=== PATIENT | male | born 1980 | race Caucasian/White ===

== ENCOUNTER 2017-05-13 19:26 | Emergency (ER) | payer BC ==
[2017-05-13 19:49] VITALS: BP 130/86
--- NOTE | 2017-05-13 20:09 | UC ---
Skin Complaint HPI - HPI Summary HPI Summary: patient started having red bites on his leg, a few weeks later developed red bites on the right side of his chest. they are pruitic, no pattern, patient does have a cat, not sure what is biting him. - History of Current Complaint Chief Complaint: UCSkin Time Seen by Provider: 05/13/17 19:47 Stated Complaint: SKIN COMPLAINT Hx Obtained From: Patient Onset/Duration: Sudden Onset, Lasting Weeks Skin Exposure Onset/Duration: Weeks Ago Timing: Intermittent Episodes Lasting: - Allergy/Home Medications Allergies/Adverse Reactions: Allergies Allergy/AdvReac Type Severity Reaction Status Date / Time Penicillins Allergy Severe Hives Verified 05/13/17 19:49 Home Medications: Home Medications Fluticasone NASAL * [Flonase *] 2 spray BOTH NARES DAILY 05/13/17 [History Confirmed 05/13/17] Zolpidem TAB* [Ambien TAB*] 10 mg PO BEDTIME PRN 05/13/17 [History Confirmed 04/22] Review of Systems Constitutional: Negative Skin: Rash - bites Eyes: Negative ENT: Negative Respiratory: Negative Cardiovascular: Negative Gastrointestinal: Negative Genitourinary: Negative Motor: Negative Neurovascular: Negative Musculoskeletal: Negative Neurological: Negative Psychological: Negative All Other Systems Reviewed And Are Negative: Yes PMH/Surg Hx/FS Hx/Imm Hx Previously Healthy: Yes - Surgical History Surgical History: None - Family History Known Family History: Negative: Cardiac Disease, Hypertension, Diabetes - Social History Alcohol Use: Daily Substance Use Type: None Smoking Status (MU): Never Smoked Tobacco Type: Cigarettes Amount Used/How Often: ~1/3 PPD Length of Time of Smoking/Using Tobacco: 11 Years Have You Smoked in the Last Year: No When Did the Patient Quit Smoking/Using Tobacco: ~2013 - Immunization History Most Recent Influenza Vaccination: Not the 2015/2016 Season Physical Exam Triage Information Reviewed: Yes Vital Signs: Initial Vital Signs Pulse 97 05/13/17 19:43 Resp 16 05/13/17 19:43 BP 130/86 05/13/17 19:43 Pulse Ox 97 05/13/17 19:43 Vital Signs Reviewed: Yes Eye Exam: Normal Eyes: Positive: Conjunctiva Clear ENT: Positive: Hearing grossly normal, Pharynx normal, TMs normal Dental Exam: Normal Neck exam: Normal Neck: Positive: Supple, Nontender, No Lymphadenopathy Respiratory Exam: Normal Respiratory: Positive: Chest non-tender, Lungs clear, Normal breath sounds Cardiovascular Exam: Normal Abdominal Exam: Normal Abdomen Description: Positive: Nontender, No Organomegaly, Soft Bowel Sounds: Positive: Present Musculoskeletal Exam: Normal Musculoskeletal: Positive: Strength Intact, ROM Intact, No Edema Neurological Exam: Normal Neurological: Positive: Alert, Muscle Tone Normal Psychological Exam: Normal Skin: Positive: Other - multiple bites on rigth side of chest older bites on both legs Course/Dx - Course Course Of Treatment: hx obtained, exam performed ,meds reviewed, prednisone given - Differential Diagnoses - Skin Complaint Differential Diagnoses: Abscess, Cellulitis, Contact Dermatitis, Urticaria - Diagnoses Provider Diagnoses: bug bites Discharge - Discharge Plan Condition: Stable Disposition: HOME Patient Education Materials: Insect Bite or Sting (ED), Bed Bugs (ED) Additional Instructions: 1. you have multiple bug bites. 2. Take the medication as prescribed. 3. Take precautions to avoid possible infestation or future bites. I dont believe they are bed bugs but have included information about what to look for
== END 2017-05-13 20:14 | disposition home or self-care (01) ==
LOC: UCCORT 19:26
DX: S20.361A Insect bite (nonvenomous) of right front wall of thorax, initial encounter (principal); S80.862A Insect bite (nonvenomous), left lower leg, initial encounter; S80.861A Insect bite (nonvenomous), right lower leg, initial encounter; W57.XXXA Bitten or stung by nonvenomous insect and other nonvenomous arthropods, initial encounter; Y93.9 Activity, unspecified; Y92.9 Unspecified place or not applicable; Z88.0 Allergy status to penicillin
CPT/HCPCS: 99212; G0463

== ENCOUNTER 2018-02-27 07:33 | Emergency (ER) | payer BC ==
[2018-02-27 08:19] VITALS: BP 128/82
--- NOTE | 2018-02-27 09:34 | RAD ---
Indication: LEFT knee patella pain following injury. Hit knee on a piece of what yesterday. Comparison: No relevant prior exams available on the [facility] – [place], [place] PACS for comparison. Technique: LEFT knee: AP, tunnel, lateral, sunrise views. REPORT AND IMPRESSION: Mild anterior soft tissue swelling superficial to the patella and quadriceps tendon. No conspicuous foreign body evident. Negative for joint effusion, fracture, or malalignment. Preserved joint spaces.
--- NOTE | 2018-02-27 09:45 | UC ---
Knee Pain HPI - HPI Summary HPI Summary: 37 yo male with left knee pain injured yesterday was horse back riding and his knee hit a piece of plywood able to bear wt sharp shooting pain with with stairs/wt bearing - History of Current Complaint Chief Complaint: UCLowerExtremity Stated Complaint: LEFT KNEE COMPLAINT Time Seen by Provider: 02/27/18 09:00 Hx Obtained From: Patient Onset/Duration: Sudden Onset Severity Initially: Mild Severity Currently: Moderate Pain Intensity: 2 Pain Scale Used: 0-10 Numeric Character: Sharp, Dull, Aching Aggravating Factor(s): Weight Bearing, Stairs Alleviating Factor(s): Rest Associated Signs And Symptoms: Positive: Swelling Able to Bear Weight: Yes - Allergies/Home Medications Allergies/Adverse Reactions: Allergies Allergy/AdvReac Type Severity Reaction Status Date / Time MS Penicillins [Penicillins] Allergy Severe Hives Verified 02/27/18 08:13 Penicillins Allergy Hives Verified 02/27/18 08:13 PMH/Surg Hx/FS Hx/Imm Hx Previously Healthy: Yes - Surgical History Surgical History: None - Family History Known Family History: Negative: Cardiac Disease, Hypertension, Diabetes - Social History Alcohol Use: Daily Alcohol Amount: 2-3 beers daily Substance Use Type: None Smoking Status (MU): Former Smoker Type: Cigarettes Amount Used/How Often: ~1/3 PPD Length of Time of Smoking/Using Tobacco: 11 Years Have You Smoked in the Last Year: No When Did the Patient Quit Smoking/Using Tobacco: ~2013 - Immunization History Most Recent Influenza Vaccination: Not the 2015/2016 Season Review of Systems Constitutional: Negative Skin: Negative Eyes: Negative ENT: Negative Respiratory: Negative Cardiovascular: Negative Gastrointestinal: Negative Genitourinary: Negative Motor: Negative Neurovascular: Negative Musculoskeletal: Arthralgia Neurological: Negative Psychological: Negative Is Patient Immunocompromised?: No All Other Systems Reviewed And Are Negative: Yes Physical Exam Triage Information Reviewed: Yes Appearance: Well-Appearing, No Pain Distress, Well-Nourished Vital Signs: Initial Vital Signs Temp 98.5 F 02/27/18 08:14 Pulse 71 02/27/18 08:14 Resp 16 02/27/18 08:14 BP 128/82 02/27/18 08:14 Pulse Ox 99 02/27/18 08:14 Vital Signs Reviewed: Yes Eyes: Positive: Conjunctiva Clear ENT: Positive: Hearing grossly normal. Negative: Nasal congestion, Nasal drainage, Uvula midline Neck: Positive: Supple, Nontender Respiratory: Positive: Lungs clear, Normal breath sounds, No respiratory distress, No accessory muscle use Cardiovascular: Positive: RRR, No Murmur Musculoskeletal: Positive: ROM Intact, No Edema Neurological: Positive: Alert Psychological Exam: Normal Skin Exam: Normal Diagnostics - Radiology No standard instances Xray Interpretation: No Acute Changes - except soft tissue swelling Radiology Interpretation Completed By: Radiologist Knee Pain Course/Dx - Differential Dx/Diagnosis Provider Diagnoses: left knee contusion Discharge - Sign-Out/Discharge Documenting (check all that apply): Discharge/Admit/Transfer - Discharge Plan Condition: Stable Disposition: HOME Patient Education Materials: Contusion in Adults (ED), Knee Pain (ED) Referrals: Williams Meier MD [Medical Doctor] - If Needed Additional Instructions: activity as tolerated ice advil or aleve - Billing Disposition and Condition Condition: STABLE Disposition: HOME
== END 2018-02-27 09:53 | disposition home or self-care (01) ==
LOC: UCCORT 07:33
DX: S80.02XA Contusion of left knee, initial encounter (principal); W22.8XXA Striking against or struck by other objects, initial encounter; Z88.0 Allergy status to penicillin; Z87.891 Personal history of nicotine dependence; Y92.9 Unspecified place or not applicable; Y93.52 Activity, horseback riding
CPT/HCPCS: 99211; G0463

== ENCOUNTER 2018-04-18 18:59 | Emergency (ER) | payer BC ==
[2018-04-18 19:37] VITALS: BP 120/89
[2018-04-18] MEDS ORDERED: Albuterol 2.5 MG/3 ML NEB.SOL* (0.083%) INH ONE (19:46)
--- NOTE | 2018-04-18 20:22 | RAD ---
INDICATION: Cough status post radiation to the breast. COMPARISON: There are no prior studies available for comparison. TECHNIQUE: Dual-energy PA and lateral views of the chest were obtained. FINDINGS: The heart is within normal limits in size. Mediastinal and hilar contours appear within normal limits. The lungs are clear. No pleural effusion is present. IMPRESSION: NO EVIDENCE FOR ACTIVE CARDIOPULMONARY DISEASE.
--- NOTE | 2018-04-18 20:44 | UC ---
Laceration HPI - HPI Summary HPI Summary: laceration right hand, cough for the last two weeks - History Of Current Complaint Chief Complaint: UCLaceration Stated Complaint: RIGHT HAND LACERATION Hx Obtained From: Patient Laceration Location: Hand Mechanism Of Injury: Sharp Trauma Severity: Mild Pain Intensity: 1 Aggravating Factors: Nothing Related History: Dominant Hand Right - Allergies/Home Medications Allergies/Adverse Reactions: Allergies Allergy/AdvReac Type Severity Reaction Status Date / Time MS Penicillins [Penicillins] Allergy Severe Hives Verified 02/27/18 08:13 Penicillins Allergy Hives Verified 02/27/18 08:13 PMH/Surg Hx/FS Hx/Imm Hx Previously Healthy: Yes - Surgical History Surgical History: None - Family History Known Family History: Negative: Cardiac Disease, Hypertension, Diabetes - Social History Alcohol Use: Daily Alcohol Amount: 2-3 beers daily Substance Use Type: None Smoking Status (MU): Former Smoker Type: Cigarettes Amount Used/How Often: ~1/3 PPD Length of Time of Smoking/Using Tobacco: 11 Years Have You Smoked in the Last Year: No When Did the Patient Quit Smoking/Using Tobacco: ~2013 - Immunization History Most Recent Influenza Vaccination: Not the Season Review of Systems Constitutional: Negative Skin: Other - laceration finger, Eyes: Negative ENT: Negative Respiratory: Cough Cardiovascular: Negative Gastrointestinal: Negative Genitourinary: Negative Motor: Negative Neurovascular: Negative Musculoskeletal: Negative Neurological: Negative Psychological: Negative All Other Systems Reviewed And Are Negative: Yes Physical Exam Triage Information Reviewed: Yes Appearance: Well-Appearing Vital Signs: Initial Vital Signs Temp 36.6 C 04/18/18 19:31 Pulse 58 04/18/18 19:31 Resp 20 04/18/18 19:31 BP 120/89 04/18/18 19:31 Pulse Ox 100 04/18/18 19:31 Vital Signs Reviewed: Yes Eye Exam: Normal ENT Exam: Normal Dental Exam: Normal Neck exam: Normal Neck: Positive: Supple Respiratory Exam: Normal Respiratory: Positive: Wheezing - left lower lung Cardiovascular: Positive: RRR Abdominal Exam: Normal Abdomen Description: Positive: Nontender Skin: Positive: Other - superficial laceration between third and fourth finger at the MCP joint, Laceration Course/Dx - Differential Dx - Laceration/Wound Provider Diagnoses: reactive airways disease. superficial laceration at MCP joint right hand Discharge - Sign-Out/Discharge Documenting (check all that apply): Patient Departure - Discharge Plan Condition: Good Disposition: HOME Prescriptions: Albuterol HFA INHALER* [Ventolin HFA Inhaler*] 2 puff INH Q4H PRN #1 mdi PRN Reason: Cough Patient Education Materials: Reactive Airways Disease (ED), Acute Bronchitis ( ED) Referrals: Douglas Sánchez DO [Primary Care Provider] - - Billing Disposition and Condition Condition: GOOD Disposition: Home
== END 2018-04-18 20:45 | disposition home or self-care (01) ==
LOC: UCCORT 18:59
DX: J45.909 Unspecified asthma, uncomplicated (principal); S61.411A Laceration without foreign body of right hand, initial encounter; Z88.0 Allergy status to penicillin; X58.XXXA Exposure to other specified factors, initial encounter; Y92.9 Unspecified place or not applicable; Z87.891 Personal history of nicotine dependence
CPT/HCPCS: 71046; 99212; G0463

== ENCOUNTER 2018-08-29 14:17 | Emergency (ER) | payer BC ==
[2018-08-29 16:00] VITALS: BP 110/86
[2018-08-29] MEDS ORDERED: Dexamethasone TAB* 4 MG PO ONE (16:10)
--- NOTE | 2018-08-29 16:10 | UC ---
UC General HPI - HPI Summary HPI Summary: SORE THROAT X 5-6 DAYS. YESTERDAY, STARTED TO IMPROVE. TODAY ABRUPTLY MUCH WORSE. - History of Current Complaint Chief Complaint: UCGeneralIllness Stated Complaint: ST Time Seen by Provider: 08/29/18 16:04 Hx Obtained From: Patient Onset/Duration: Gradual Onset Timing: Constant Pain Intensity: 5 Associated Signs & Symptoms: Negative: Fever - Allergy/Home Medications Allergies/Adverse Reactions: Allergies Allergy/AdvReac Type Severity Reaction Status Date / Time Penicillins Allergy Hives Verified 08/29/18 16:00 PMH/Surg Hx/FS Hx/Imm Hx - Additional Past Medical History Additional PMH: SLEEP DISTURBANCE - Surgical History Surgical History: None - Family History Known Family History: Positive: Non-Contributory Negative: Cardiac Disease, Hypertension, Diabetes - Social History Alcohol Use: Daily Alcohol Amount: 2-3 beers daily Substance Use Type: None Smoking Status (MU): Former Smoker Type: Cigarettes Amount Used/How Often: ~1/3 PPD Length of Time of Smoking/Using Tobacco: 11 Years Have You Smoked in the Last Year: No When Did the Patient Quit Smoking/Using Tobacco: ~2013 - Immunization History Most Recent Influenza Vaccination: Not the 2015/2016 Season Vaccination Up to Date: Yes Review of Systems All Other Systems Reviewed And Are Negative: Yes Constitutional: Positive: Negative Skin: Positive: Negative Eyes: Positive: Negative ENT: Positive: Sore Throat Respiratory: Positive: Negative Cardiovascular: Positive: Negative Gastrointestinal: Positive: Negative Genitourinary: Positive: Negative Motor: Positive: Negative Neurovascular: Positive: Negative Musculoskeletal: Positive: Negative Neurological: Positive: Negative Psychological: Positive: Negative Physical Exam Triage Information Reviewed: Yes Appearance: Well-Appearing Vital Signs: Initial Vital Signs Temp 98.2 F 08/29/18 15:57 Pulse 64 08/29/18 15:57 Resp 18 08/29/18 15:57 BP 110/86 08/29/18 15:57 Pulse Ox 98 08/29/18 15:57 Vital Signs Reviewed: Yes Eyes: Positive: Conjunctiva Clear ENT: Positive: Pharyngeal erythema, TMs normal, Uvula midline - WITH MODERATE SWELLING AND ERYTHEMA.. Negative: Nasal congestion, Nasal drainage, Trismus, Muffled voice, Hoarse voice Neck: Positive: Supple, Nontender, Enlarged Nodes @ - PERITONSILAR NODES. Respiratory: Positive: Lungs clear, Normal breath sounds Cardiovascular: Positive: RRR, No Murmur Abdomen Description: Positive: Nontender, No Organomegaly, Soft Bowel Sounds: Positive: Present Musculoskeletal: Positive: ROM Intact Neurological: Positive: Alert Psychological: Positive: Age Appropriate Behavior Skin Exam: Normal Diagnostics - Laboratory Diagnostic Studies Completed/Ordered: RAPID STREP=NEG Course/Dx - Course Course Of Treatment: RAPID STREP=NEG. UVULITIS ON EXAM. NO CONCERN FOR PERITONSIALR ABSCESS. GIVEN DURATION AND WORSENING, WILL COVER FOR PRESUMPTIVE BACTERIAL INFECTION WITH ZITHROMAX. PT HAS PCN ALLERGY. - Differential Dx - Multi-Symptom Provider Diagnoses: UVULITIS Discharge - Sign-Out/Discharge Documenting (check all that apply): Patient Departure All imaging exams completed and their final reports reviewed: No Studies - Discharge Plan Condition: Stable Disposition: HOME Prescriptions: Azithromycin 500 mg PO DAILY 5 Days #5 tablet Patient Education Materials: Uvulitis (ED) Referrals: Douglas Alston DO [Primary Care Provider] - Additional Instructions: FOLLOW UP DR ALSTON IF NOT BETTER IN5-7 DAYS OR SOONER IF WORSE. - Billing Disposition and Condition Condition: STABLE Disposition: Home
== END 2018-08-29 16:23 | disposition home or self-care (01) ==
LOC: UCCORT 14:17
DX: K12.2 Cellulitis and abscess of mouth (principal); Z88.0 Allergy status to penicillin; Z87.891 Personal history of nicotine dependence
CPT/HCPCS: 87651; 99212; G0463; J8540

== ENCOUNTER 2018-10-17 19:34 | Emergency (ER) | payer BC ==
[2018-10-17 20:06] VITALS: BP 124/82
--- NOTE | 2018-10-17 20:23 | UC ---
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 no APAP or nsaids today. appetite decreased. no BLUE> no wheezing. no asthma. no known sick contacts. - History of Current Complaint Chief Complaint: UCGeneralIllness Stated Complaint: SORE THROAT/ACHY/CHILLS/FATIGUE Time Seen by Provider: 10/17/18 20:03 Pain Intensity: 4 - Allergies/Home Medications Allergies/Adverse Reactions: Allergies Allergy/AdvReac Type Severity Reaction Status Date / Time Penicillins Allergy Hives Verified 10/17/18 20:05 PMH/Surg Hx/FS Hx/Imm Hx Previously Healthy: Yes - Surgical History Surgical History: None - Family History Known Family History: Positive: Non-Contributory Negative: Cardiac Disease, Hypertension, Diabetes - Social History Alcohol Use: Daily Alcohol Amount: 2-3 beers daily Substance Use Type: None Smoking Status (MU): Former Smoker Type: Cigarettes Amount Used/How Often: ~1/3 PPD Length of Time of Smoking/Using Tobacco: 11 Years Have You Smoked in the Last Year: No When Did the Patient Quit Smoking/Using Tobacco: ~2013 - Immunization History Most Recent Influenza Vaccination: Not the 2016/2016 Season Vaccination Up to Date: Yes Review of Systems All Other Systems Reviewed And Are Negative: Yes Constitutional: Positive: Fever, Chills, Fatigue Skin: Positive: Negative Eyes: Positive: Negative ENT: Positive: Sore Throat Respiratory: Positive: Cough Cardiovascular: Positive: Negative Gastrointestinal: Positive: Negative Genitourinary: Positive: Negative Motor: Positive: Negative Neurovascular: Positive: Negative Musculoskeletal: Positive: Negative Neurological: Positive: Negative Psychological: Positive: Negative Is Patient Immunocompromised?: No Physical Exam Triage Information Reviewed: Yes Appearance: Well-Appearing, No Pain Distress, Well-Nourished Vital Signs: Initial Vital Signs Temp 100.5 F 10/17/18 20:02 Pulse 83 10/17/18 20:02 Resp 22 10/17/18 20:02 BP 124/82 10/17/18 20:02 Pulse Ox 98 10/17/18 20:02 Vital Signs Reviewed: Yes Eye Exam: Normal ENT Exam: Normal ENT: Positive: Pharyngeal erythema, Nasal congestion, Nasal drainage, TMs normal , Uvula midline. Negative: Sinus tenderness Dental Exam: Normal Neck exam: Normal Neck: Positive: Supple, Nontender, No Lymphadenopathy Respiratory Exam: Normal Respiratory: Positive: Lungs clear, Normal breath sounds, No respiratory distress, No accessory muscle use. Negative: Crackles, Rhonchi, Stridor, Wheezing Cardiovascular Exam: Normal Cardiovascular: Positive: RRR, No Murmur, Pulses Normal Abdominal Exam: Normal Abdomen Description: Positive: Nontender, Soft Musculoskeletal Exam: Normal Neurological Exam: Normal Psychological Exam: Normal Skin Exam: Normal UC Diagnostic Evaluation - Laboratory O2 Sat by Pulse Oximetry: 98 Respiratory Course/Dx - Course Course Of Treatment: rapid flu - neg. -no e/o bacterial infection. -fluids/ rest. apap/nsaids. f/u if sx/fever increases/persists. - Differential Dx/Diagnosis Differential Diagnosis/HQI/PQRI: Asthma, Bronchitis, Influenza, Laryngitis Provider Diagnosis: Viral syndrome Discharge - Sign-Out/Discharge Documenting (check all that apply): Patient Departure All imaging exams completed and their final reports reviewed: No Studies - Discharge Plan Condition: Stable Disposition: HOME Patient Education Materials: Viral Syndrome (ED) Referrals: Douglas Sánchez DO [Primary Care Provider] - 5 Days Additional Instructions: -Increase fluids and rest. You can take tylenol or ibuprofen for your symptoms. You should follow up for your symptoms if they worsen or persist. - Billing Disposition and Condition Condition: STABLE Disposition: Home
== END 2018-10-17 21:00 | disposition home or self-care (01) ==
LOC: UCCORT 19:34
DX: B34.9 Viral infection, unspecified (principal); Z88.0 Allergy status to penicillin; Z87.891 Personal history of nicotine dependence
CPT/HCPCS: 99211; G0463